=== PATIENT | male | born 1980 | race Caucasian/White ===

== ENCOUNTER 2019-10-03 03:36 | Emergency (ER) | payer BC ==
[~2019-10-03] VITALS: Ht 182.9 cm; Wt 104.3 kg
[~2019-10-03 03:36] MED LIST: ALBUTEROL2.5 MG/31; CIPROFLOXACIN500 M1 PO; DESYREL; FLAGYL500 MG PO; GABAPENTIN; HYDROCODONE-AP1 EAC6 PO; VENTOLIN HFA 1818 GM
[2019-10-03 05:06] LABS: ABSOLUTE BASOPHILS 0.1 thou/uL (0.0-0.2); ABSOLUTE EOSINOPHILS 0.5 thou/uL (0.0-0.7); ABSOLUTE LYMPHOCYTES 1.3 thou/uL (0.8-5.3); ABSOLUTE MONOCYTES 0.7 thou/uL (0.0-1.2); ABSOLUTE NEUTROPHILS 2.9 thou/uL (1.6-8.1); BASOPHILS 1.5 %; EOSINOPHILS 8.3 %; HEMATOCRIT 47.5 % (42.0-52.0); HEMOGLOBIN 16.5 gm/dL (14.0-18.0); LYMPHOCYTES 24.7 %; MCH 32.2 pg (26.0-34.0); MCHC 34.7 g/dL (28.0-37.0); MCV 92.7 fL (80.0-100.0); MONOCYTES 12.5 %; MPV 7.9 fl. (7.2-11.1); NUCLEATED RBCS 0 /100WBC; PLATELET COUNT* 253 thou/uL (150-400); RBC 5.12 mil/uL (4.50-6.00); RDW-CV 12.6 % (10.5-14.5); WBC 5.4 thou/uL (4.0-11.0)
[2019-10-03 05:08] LABS: CALCIUM 8.6 mg/dL (8.5-10.1); CREATININE 0.8 mg/dL (0.6-1.3); POTASSIUM 4.1 mmol/L (3.5-5.1)
[2019-10-03 05:33] LABS: ALBUMIN 3.9 g/dL (3.4-5.0); TOTAL BILIRUBIN 0.3 mg/dL (<0.1-1.0); TOTAL PROTEIN 7.8 g/dL (6.4-8.2)
[2019-10-03] MEDS ORDERED: FLEXERIL PO (05:40)
[2019-10-03] MEDS ORDERED: HYDROCODON-ACE1 EAC8 PO (05:40)
[2019-10-03] MEDS ORDERED: BACLOFEN 10MG T10 MG PO (05:40)
[2019-10-03] MEDS ORDERED: PREDNISONE50 MG PO (05:40)
[2019-10-03 05:48] VITALS: BP 126/78
--- NOTE | 2019-10-03 10:21 | EKG ---
[place] [address] ELECTROCARDIOGRAM REPORT Name: RADU CAMPBELL [facility] [id number] Admission: 10/03/19 Attend Phys: Discharge: 10/03/19 Date of : 76 Report #: [id number] THIS REPORT FOR: //name// [facility] ED Test Date: 2019-10-03 Test Time: 04:22:13 Pat Name: RADU CAMPBELL Department: Room: Gender: M [employer] Mechanic: MAYITO : 1980 Requested By: Annia Manuel Order Number: [id number] MD: Kolton Royal Measurements Intervals [place] Rate: 86 P: 77 [place]: 180 QRS: 69 QRSD: 97 T: 25 QT: 364 QTc: 436 Interpretive Statements Sinus rhythm Baseline wander in lead(s) V4 No previous ECG available for comparison Electronically Signed On 10-03-2019 10:20:34 LINEMAN by Kolton Royal [email or web address] <ELECTRONICALLY SIGNED> By: Kolton Royal MD, [facility] 10/03/19 1020 0422 0422 Kolton Royal MD, FACC /EPI
== END 2019-10-03 05:48 | disposition home or self-care (01) ==
LOC: M.ERS 03:36
PROVIDERS: Emergency Medicine
DX: M54.12 Radiculopathy, cervical region (principal); J45.909 Unspecified asthma, uncomplicated; F17.210 Nicotine dependence, cigarettes, uncomplicated